=== PATIENT | female | born 1970 | race African-American/Black ===

== ENCOUNTER 2017-02-15 13:16 | Inpatient (IN) | payer SELFPAY ==
[~2017-02-15] VITALS: Ht 162.6 cm; Wt 131.6 kg
[2017-02-15] MEDS ORDERED: cloNIDine HCL 0.1 MG TAB ONE (13:33)
[2017-02-15 14:11] LABS: Basophils # (auto) 0 uL; Basophils % (auto) 0.6 % (0.0-2.0); Eosinophils # (auto) 0.1 uL; Hemoglobin 12.6 g/dL (12.2-16.2); Monocytes # (auto) 0.6 uL; Nucleated Red Blood Cells % 0.1 %; White Blood Cell 5.8 10^3/uL (4.4-10.8)
[2017-02-15 14:13] LABS: Eosinophils % (auto) 1.5 % (0.0-7.0); Hematocrit 38.9 % (36.0-46.0); Lymphocytes # (auto) 2.3 uL; Lymphocytes % (auto) 39.2 % (10.0-50.0); Mean Corpuscular Hgb Conc. 32.5 g/dL (32.0-36.0); Mean Corpuscular Volume 82.9 fL (80.0-100.0); Monocytes % (auto) 10.2 % (0.0-12.0); Neutrophils # (auto) 2.8 uL; Neutrophils % (auto) 48.5 % (37.0-80.0); Platelet Count (auto) 276 10^3/uL (140-450); Red Blood Cells 4.69 10^6/uL (4.0-5.20); Red Cell Distribution Width 15.1 % (11.8-14.3)
[2017-02-15 14:39] LABS: Alanine Aminotransferase 25 U/L (13-56); Albumin 3.5 g/dL (3.4-5.0); Alkaline Phosphatase 110 U/L (45-117); Anion Gap 11 (5-15); Aspartate Aminotransferase 12 U/L (15-37); BUN/Creatinine Ratio 7.8; Bilirubin, Total 0.2 mg/dL (0.2-1.0); Blood Urea Nitrogen 8 mg/dL (7-18); Calcium 8.5 mg/dL (8.5-10.1); Carbon Dioxide 26 mmol/L (21-32); Chloride 102 mmol/L (98-107); GFR African American 75 mL/min; GFR Non-African American 62 mL/min; Glucose 131 mg/dL (74-106); Magnesium 1.9 mg/dL (1.6-2.6); Potassium 3.1 mmol/L (3.5-5.1); Sodium 139 mmol/L (136-145); Total Protein 8.5 g/dL (6.4-8.2)
[2017-02-15] MEDS ORDERED: POTASSIUM CHL 20 Meq TABLET PO ONE (16:15)
[2017-02-15] MEDS ORDERED: hydrALAZINE HCL 10 MG TAB PO ONE (19:15)
[2017-02-15] MEDS ORDERED: HYDROcodone-ACET 10/325MG TAB PO ONE (19:15)
[2017-02-15] MEDS ORDERED: ONDANSETRON HCL 4 MG/2 ML VIAL IV ONE (22:00)
[2017-02-15 23:08] LABS: Urine Bacteria FEW /hpf (None Seen); Urine Blood Negative /uL (Negative); Urine Mucus FEW (None Seen); Urine Specific Gravity 1.016 (1.001-1.035); Urine WBC 2 /hpf (0 - 5)
[2017-02-15] MEDS ORDERED: ACETAMINOPHEN 500 MG TAB PO PRN (23:30)
[2017-02-16] MEDS: ONDANSETRON HCL 4 MG/2 ML VIAL IV PRN ×2 (01:25→09:22)
[2017-02-16] MEDS: HYDROcodone-ACET 5/325MG TAB PO PRN ×3 (01:26→20:44)
[2017-02-16] MEDS ORDERED: DEXTROSE (50%) 50ML SYRG IV PRN (01:45)
[2017-02-16] MEDS ORDERED: POTASSIUM CHL 20 Meq TABLET PO ONE (01:45)
[2017-02-16 05:24] LABS: Basophils # (auto) 0 uL; Basophils % (auto) 0.4 % (0.0-2.0); Eosinophils # (auto) 0.1 uL; Eosinophils % (auto) 1.2 % (0.0-7.0); Hematocrit 37.9 % (36.0-46.0); Hemoglobin 12.6 g/dL (12.2-16.2); Lymphocytes # (auto) 3.4 uL; Lymphocytes % (auto) 43.2 % (10.0-50.0); Mean Corpuscular Hemoglobin 27.5 pg (28.0-32.0); Mean Corpuscular Hgb Conc. 33.2 g/dL (32.0-36.0); Mean Corpuscular Volume 82.6 fL (80.0-100.0); Monocytes # (auto) 0.7 uL; Monocytes % (auto) 8.9 % (0.0-12.0); Neutrophils # (auto) 3.6 uL; Neutrophils % (auto) 46.3 % (37.0-80.0); Nucleated Red Blood Cells % 0.1 %; Platelet Count (auto) 262 10^3/uL (140-450); Red Blood Cells 4.59 10^6/uL (4.0-5.20); Red Cell Distribution Width 15.4 % (11.8-14.3); White Blood Cell 7.8 10^3/uL (4.4-10.8)
[2017-02-16 05:32] LABS: Anion Gap 10 (5-15); Blood Urea Nitrogen 6 mg/dL (7-18); Calcium 8.8 mg/dL (8.5-10.1); Carbon Dioxide 26 mmol/L (21-32); Chloride 103 mmol/L (98-107); Cholesterol 175 mg/dL (< 200); GFR African American 77 mL/min; GFR Non-African American 64 mL/min; Glucose 108 mg/dL (74-106); HDL Cholesterol 43 mg/dL (40-59); LDL Cholesterol 109 mg/dL (< 100); Potassium 3.2 mmol/L (3.5-5.1); Sodium 139 mmol/L (136-145); Triglycerides 165 mg/dL (< 150)
[2017-02-16] MEDS: LEVOTHYROXINE SODIUM 25 MCG TAB PO SCH (09:21)
[2017-02-16] MEDS: FLUoxetine HCL 20 MG CAP PO SCH (09:21)
[2017-02-16] MEDS: risperiDONE 1 MG TAB PO SCH (09:22)
[2017-02-16] MEDS: cloNIDine HCL 0.1 MG TAB PO SCH ×2 (09:23→21:39)
[2017-02-16] MEDS: NIFEdipine ER 30 MG TAB PO SCH (09:23)
[2017-02-16] MEDS: InsuLIN REG 1unit/0.01ml Soln (100units/ml) SC SCH ×4 (09:24→21:40)
[2017-02-16] MEDS: hydrALAZINE HCL 20 MG/ML VL IV SCH ×2 (09:24→13:10)
[2017-02-16] MEDS: ACCU-CHEK COMFORT CURVE STRIP VI SCH ×4 (09:24→21:39)
[2017-02-16 10:00] VITALS: BP 206/122
[2017-02-16 13:00] VITALS: BP 190/113
[2017-02-16] MEDS: LISINOPRIL 10 MG TAB PO SCH (13:10)
[2017-02-16] MEDS ORDERED: METOPROLOL TARTRATE 1MG/1ML-5ML VIAL IV ONE (14:45)
[2017-02-16 16:56] VITALS: BP 141/77
[2017-02-16 21:24] VITALS: BP 150/83
[2017-02-16] MEDS: QUEtiapine FUMARATE 100 MG TAB PO SCH (21:38)
[2017-02-17 05:12] VITALS: BP 122/84
[2017-02-17] MEDS: InsuLIN REG 1unit/0.01ml Soln (100units/ml) SC SCH ×4 (06:14→22:00)
[2017-02-17] MEDS: ACCU-CHEK COMFORT CURVE STRIP VI SCH ×4 (06:14→22:08)
[2017-02-17] MEDS ORDERED: ATEN-60 PO (06:27)
[2017-02-17] MEDS ORDERED: CLON0.1T PO (06:27)
[2017-02-17 06:30] LABS: Basophils # (auto) 0 uL; Basophils % (auto) 0.5 % (0.0-2.0); Eosinophils # (auto) 0.1 uL; Eosinophils % (auto) 1.1 % (0.0-7.0); Hematocrit 37.5 % (36.0-46.0); Hemoglobin 12.4 g/dL (12.2-16.2); Lymphocytes # (auto) 2.9 uL; Lymphocytes % (auto) 40.1 % (10.0-50.0); Mean Corpuscular Hemoglobin 27.6 pg (28.0-32.0); Mean Corpuscular Hgb Conc. 33.1 g/dL (32.0-36.0); Mean Corpuscular Volume 83.2 fL (80.0-100.0); Monocytes # (auto) 0.7 uL; Monocytes % (auto) 9.8 % (0.0-12.0); Neutrophils # (auto) 3.6 uL; Neutrophils % (auto) 48.5 % (37.0-80.0); Nucleated Red Blood Cells % 0.1 %; Platelet Count (auto) 245 10^3/uL (140-450); Red Blood Cells 4.51 10^6/uL (4.0-5.20); Red Cell Distribution Width 15.5 % (11.8-14.3); White Blood Cell 7.3 10^3/uL (4.4-10.8)
[2017-02-17] MEDS: LEVOTHYROXINE SODIUM 25 MCG TAB PO SCH (06:35)
[2017-02-17 07:33] LABS: Albumin 3.4 g/dL (3.4-5.0); BUN/Creatinine Ratio 8.7; Bilirubin, Total 0.5 mg/dL (0.2-1.0); Calcium 8.9 mg/dL (8.5-10.1); Magnesium 1.8 mg/dL (1.6-2.6); Phosphorus 3.7 mg/dL (2.5-4.90); Total Protein 8.1 g/dL (6.4-8.2)
[2017-02-17 07:38] LABS: Potassium 2.6 mmol/L (3.5-5.1)
[2017-02-17 08:00] VITALS: BP 126/90
[2017-02-17] MEDS ORDERED: POTASSIUM CHL 20 Meq TABLET PO ONE (08:15)
[2017-02-17 09:00] VITALS: BP 126/90
[2017-02-17] MEDS ORDERED: ADENOSINE 6 MG/2 ML INJ IV ONE (09:09)
[2017-02-17] MEDS: FLUoxetine HCL 20 MG CAP PO SCH (10:03)
[2017-02-17] MEDS: cloNIDine HCL 0.1 MG TAB PO SCH ×2 (10:03→22:18)
[2017-02-17] MEDS: risperiDONE 1 MG TAB PO SCH (10:03)
[2017-02-17] MEDS: LISINOPRIL 10 MG TAB PO SCH (10:04)
[2017-02-17] MEDS: NIFEdipine ER 30 MG TAB PO SCH (10:04)
[2017-02-17 13:00] VITALS: BP 122/94
[2017-02-17] MEDS ORDERED: POTASSIUM CHLORIDE 40 MEQ, LIDOCAINE 1% (LOCAL ANESTH.) 4 ML in SODIUM CHL 0.9% 100 ML IV ONE (14:00)
[2017-02-17 17:00] VITALS: BP 134/85
[2017-02-17] MEDS: POTASSIUM CHL 20 Meq TABLET PO SCH ×2 (17:15→22:19)
[2017-02-17 22:00] VITALS: BP 118/68
[2017-02-17] MEDS: QUEtiapine FUMARATE 100 MG TAB PO SCH (22:19)
[2017-02-18 05:28] VITALS: BP 138/69
[2017-02-18 06:06] LABS: Basophils # (auto) 0.1 uL; Basophils % (auto) 1.5 % (0.0-2.0); Eosinophils # (auto) 0.2 uL; Eosinophils % (auto) 2.7 % (0.0-7.0); Hemoglobin 12.3 g/dL (12.2-16.2); Lymphocytes # (auto) 3.1 uL; Lymphocytes % (auto) 46.6 % (10.0-50.0); Mean Corpuscular Hemoglobin 27.3 pg (28.0-32.0); Mean Corpuscular Hgb Conc. 32.4 g/dL (32.0-36.0); Mean Corpuscular Volume 84.3 fL (80.0-100.0); Monocytes # (auto) 0.6 uL; Monocytes % (auto) 9.1 % (0.0-12.0); Neutrophils # (auto) 2.7 uL; Neutrophils % (auto) 40.1 % (37.0-80.0); Nucleated Red Blood Cells % 0.2 %; Platelet Count (auto) 253 10^3/uL (140-450); Red Blood Cells 4.51 10^6/uL (4.0-5.20); Red Cell Distribution Width 15.8 % (11.8-14.3); White Blood Cell 6.6 10^3/uL (4.4-10.8)
[2017-02-18] MEDS: ACCU-CHEK COMFORT CURVE STRIP VI SCH ×3 (06:12→17:17)
[2017-02-18] MEDS: InsuLIN REG 1unit/0.01ml Soln (100units/ml) SC SCH ×3 (06:12→17:18)
[2017-02-18] MEDS: POTASSIUM CHL 20 Meq TABLET PO SCH ×2 (06:21→14:20)
[2017-02-18] MEDS: LEVOTHYROXINE SODIUM 25 MCG TAB PO SCH (06:22)
[2017-02-18 06:31] LABS: Albumin 3.3 g/dL (3.4-5.0); BUN/Creatinine Ratio 9.7; Bilirubin, Total 0.4 mg/dL (0.2-1.0); Calcium 8.9 mg/dL (8.5-10.1); Magnesium 2.1 mg/dL (1.6-2.6); Phosphorus 3.8 mg/dL (2.5-4.90); Potassium 3.5 mmol/L (3.5-5.1)
[2017-02-18 09:00] VITALS: BP 111/85
[2017-02-18] MEDS: NIFEdipine ER 30 MG TAB PO SCH (09:39)
[2017-02-18] MEDS: FLUoxetine HCL 20 MG CAP PO SCH (09:40)
[2017-02-18] MEDS: LISINOPRIL 10 MG TAB PO SCH (09:40)
[2017-02-18] MEDS: cloNIDine HCL 0.1 MG TAB PO SCH (09:40)
[2017-02-18] MEDS: risperiDONE 1 MG TAB PO SCH (09:40)
[2017-02-18] MEDS ORDERED: SPIRONOLACTONE 25 MG TAB PO SCH (10:00)
[2017-02-18 13:00] VITALS: BP 111/65
[2017-02-18 17:29] VITALS: BP 111/70
[2017-02-19 11:15] LABS: Free T4 (Free Thyroxine) 1.46 ng/dL (0.89-1.76)
[2017-02-19 11:16] LABS: Free T3 3.01 pg/mL (2.3-4.2)
[2017-05-25] MEDS ORDERED: TRIA0.1P11 TOP (10:35)
[2017-05-25] MEDS ORDERED: RISP2TAB62 PO (10:35)
[2017-05-25] MEDS ORDERED: LEVO25TA6 PO (10:35)
[2017-05-25] MEDS ORDERED: LISI-646 PO (10:35)
[2017-05-25] MEDS ORDERED: TIZA4CAP7 PO (10:35)
[2017-05-25] MEDS ORDERED: HYDR-531 PO (10:35)
[2017-05-25] MEDS ORDERED: NIFE90TA30 PO (10:35)
[2017-05-25] MEDS ORDERED: DIVA500T59 PO (10:35)
[2017-05-25] MEDS ORDERED: QUET300T23 PO (10:35)
[2017-05-25] MEDS ORDERED: HYDR25TA4 PO (10:35)
[2017-05-25] MEDS ORDERED: FLUO-125 PO (10:35)
[2017-05-25] MEDS ORDERED: CLON0.2T PO (10:35)
== END 2017-02-18 19:13 | disposition home or self-care (01) | DRG 305 ==
LOC: ER 13:16 → OVERFLOW 13:17 → WEST WING 02-16 08:40 → TELE-WESTW 02-17 23:54
PROVIDERS: ADMIT Nurse Practitioner Family; ATTEND Nurse Practitioner Family
DX: I16.1 Hypertensive emergency (principal); N17.9 Acute kidney failure, unspecified; D68.59 Other primary thrombophilia; E11.22 Type 2 diabetes mellitus with diabetic chronic kidney disease; F20.9 Schizophrenia, unspecified; R16.0 Hepatomegaly, not elsewhere classified; Z68.42 Body mass index [BMI] 45.0-49.9, adult; K75.4 Autoimmune hepatitis; E03.9 Hypothyroidism, unspecified; E26.9 Hyperaldosteronism, unspecified; E66.9 Obesity, unspecified; E78.5 Hyperlipidemia, unspecified; E87.6 Hypokalemia; I13.10 Hypertensive heart and chronic kidney disease without heart failure, with stage 1 through stage 4 chronic kidney disease, or unspecified chronic kidney disease; R00.0 Tachycardia, unspecified; I15.9 Secondary hypertension, unspecified; F31.9 Bipolar disorder, unspecified; K76.0 Fatty (change of) liver, not elsewhere classified; N18.2 Chronic kidney disease, stage 2 (mild); Z79.4 Long term (current) use of insulin; Z80.1 Family history of malignant neoplasm of trachea, bronchus and lung; Z83.3 Family history of diabetes mellitus; Z90.5 Acquired absence of kidney; Z91.19 Patient's noncompliance with other medical treatment and regimen
CPT/HCPCS: 36415; 71020; 76705; 80048; 80053; 80061; 81001; 82088; 82384; 82570; 82962; 83735; 83880; 84100; 84244; 84439; 84443; 84481; 84484; 85025; 85379; 87081; 93005; 93306; 93970; 96374; J0153; J1815; J2001; J2405